=== PATIENT | female | born 1950 | race Caucasian/White ===

== ENCOUNTER 2020-12-09 09:37 | Observation (INO) ==
[2020-12-09 10:29] LABS: Basophils # 0.1 K/mcL (0.0-0.2); Basophils % 1.1 %; Eosinophils # 0.1 K/mcL (0.0-0.6); Eosinophils % 0.8 %; Hematocrit 40.5 % (35.3-44.9); Hemoglobin 12.9 g/dL (11.5-15.4); Immature Granulocytes % 0.2 % (0-4); Lymphocytes # 1.6 K/mcL (0.6-4.6); Lymphocytes % 18.8 %; Mean Corpuscular HGB Conc 31.9 g/dL (31.6-35.5); Mean Corpuscular Hemoglobin 34.7 pg (28.0-33.3); Mean Corpuscular Volume 108.9 fL (83.0-100.0); Mean Platelet Volume 10.9 fL (9.4-12.4); Monocytes # 0.5 K/mcL (0.0-1.3); Monocytes % 6.2 %; Neutrophils # 6.1 K/mcL (1.6-8.9); Platelet Count 293 K/mcL (140-400); Red Blood Count 3.72 M/mcL (3.82-4.97); Red Cell Distribution Width 13.5 % (11.5-14.5); Segmented Neutrophils % 72.9 %; White Blood Count 8.4 K/mcL (4.3-11.1)
[2020-12-09 11:52] LABS: BUN/Creatinine Ratio 25 (6-26); Blood Urea Nitrogen 16 mg/dL (8-23); Calcium 9.1 mg/dL (8.6-10.3); Carbon Dioxide 27 mEq/L (23-29); Chloride 103 mEq/L (98-107); Glucose 102 mg/dL (70-105); Osmolality,Calculated 285 (280-300); Potassium 3.9 mEq/L (3.5-5.1); Sodium 137 mEq/L (136-145); Troponin I < 0.03 ng/mL (< 0.04); eGFR For African Americans > 60 (> 60); eGFR For Non-African Americans > 60 (> 60)
[2020-12-09 12:52] LABS: Influenza A PCR Negative (Negative); Influenza B PCR Negative (Negative); Resp. Syncytial Virus PCR Negative (Negative)
[2020-12-09 13:08] LABS: SARS-CoV-2 by PCR (In House) Negative (Negative)
[2020-12-09] MEDS ORDERED: Aspirin 325 MG TABLET PO ONE (14:05)
[2020-12-09] MEDS ORDERED: Ipratropium/Albuterol Neb 3 ML IH ONE (14:05)
[2020-12-09] MEDS ORDERED: 0.9 % Sodium Chloride 500 ML IVC ONE (14:06)
[2020-12-09] MEDS ORDERED: Ipratropium/Albuterol Neb 3 ML ONE (14:17)
[2020-12-09] MEDS ORDERED: Naloxone 0.4 MG/ML INJ IVP PRN (15:09)
[2020-12-09] MEDS ORDERED: Ondansetron 4 MG/2 ML VIAL IVP PRN (15:09)
[2020-12-09] MEDS: Levalbuterol Neb 0.63 MG/3 ML IH SCH ×2 (16:41→20:09)
[2020-12-09] MEDS: Azithromycin 250 MG TABLET PO SCH (17:09)
[2020-12-09] MEDS: *HR* Heparin 5,000 UNIT/ML VIAL SQ SCH (17:10)
[2020-12-09] MEDS: MethylPREDNISolone 40 MG/ML VIAL IVP SCH (20:51)
[2020-12-09] MEDS ORDERED: Acetaminophen 325 MG TABLET PO PRN (21:11)
[2020-12-10] MEDS: Levalbuterol Neb 0.63 MG/3 ML IH SCH ×4 (03:44→21:03)
[2020-12-10] MEDS: *HR* Heparin 5,000 UNIT/ML VIAL SQ SCH ×2 (05:40→17:58)
[2020-12-10] MEDS: Azithromycin 250 MG TABLET PO SCH (09:18)
[2020-12-10] MEDS: MethylPREDNISolone 40 MG/ML VIAL IVP SCH ×2 (09:18→20:22)
[2020-12-10] MEDS ORDERED: Ibuprofen 400 MG TABLET PO ONE ×2 (09:20→20:00)
[2020-12-10] MEDS ORDERED: *HR* HYDROcodone/Acet 5/325 mg TABLET PO ONE (13:04)
[2020-12-10] MEDS ORDERED: Melatonin 3 MG TABLET PO SCH (21:00)
[2020-12-11 03:09] VITALS: TEMP 97.6
[2020-12-11] MEDS: Levalbuterol Neb 0.63 MG/3 ML IH SCH ×2 (05:00→09:54)
[2020-12-11] MEDS ORDERED: Ibuprofen 400 MG TABLET PO ONE (05:45)
[2020-12-11] MEDS: *HR* Heparin 5,000 UNIT/ML VIAL SQ SCH (05:50)
[2020-12-11 07:21] VITALS: BP 106/62; PULSE 93
[2020-12-11] MEDS: Azithromycin 250 MG TABLET PO SCH (08:43)
[2020-12-11] MEDS: MethylPREDNISolone 40 MG/ML VIAL IVP SCH (08:44)
[2020-12-11] MEDS ORDERED: Acetaminophen/Aspirin/Caffeine TABLET PO PRN (09:24)
[2020-12-11 14:13] VITALS: O2SAT 96
== END 2020-12-11 12:36 | disposition home or self-care (01) ==
LOC: 3BNU 09:37 → EMEROOARM 09:37 → SUATTDRO 14:28 → 3BNU 14:58
PROVIDERS: ADMIT Family Medicine; ATTEND Internal Medicine